=== PATIENT | female | born 1950 | race Caucasian/White ===

== ENCOUNTER 2017-02-08 06:12 | Outpatient (CLI) | payer MEDICARE ==
[~2017-02-08] VITALS: Ht 157.5 cm; Wt 64.9 kg
[2017-02-08] MEDS ORDERED: ESOM20TA PO (16:26)
[2017-02-08] MEDS ORDERED: ALEN70TA47 PO (16:26)
[2017-02-08] MEDS ORDERED: CITA20TA12 PO (16:26)
== END 2017-02-08 16:30 ==
LOC: PREOP 06:12
PROVIDERS: ATTEND Surgery
DX: Z01.818 Encounter for other preprocedural examination (principal); K21.9 Gastro-esophageal reflux disease without esophagitis

== ENCOUNTER 2017-02-12 10:58 | Day surgery (SDC) | payer MEDICARE, OTHER ==
[~2017-02-12] VITALS: Ht 157.5 cm; Wt 64.9 kg
[~2017-02-12 10:58] MED LIST: ALEN70TA47 PO; CITA20TA12 PO; ESOM20TA PO
[2017-02-12] MEDS ORDERED: NS IV 500 ML 500 ML ONE (11:07)
[2017-02-12 11:11] VITALS: BP 142/74
[2017-02-12] MEDS ORDERED: NS IV 500 ML 500 ML IV ONE (11:15)
--- NOTE | 2017-02-12 11:37 | Conscious Sedation/ASA ---
Conscious Sedation Pre-Proced Time Reviewed: 11:30 ASA Class: 2 Airway Mallampati Classification: ([place] appropriate class) I. II. III, IV Lungs Heart ASA score ASA 1: a normal healthy patient ASA 2: a patient with a mild systemic disease (mid diabetes, controlled hypertension, obesity ASA 3: a patient with a severe systemic disease that limits activity (angina , COPD, prior Myocardial infarction) ASA 4: a patient with an incapacitating disease that is a constant threat to life (CHF, renal failure) ASA 5: a moribund patient not expected to survive 24 hrs. (ruptured aneurysm) ASA 6: a declared brain patient whose organs are being harvested. For emergent operations, add the letter E after the classification Grade 2 Sedation Plan: Analgesia, Amnesia, Plan communicated to team members, Discussed options with patient/fam, Discussed risks with patient/fam Note The patient is an appropriate candidate to undergo the planned procedure, sedation, and anesthesia. The patient immediately re-assessed prior to indication. GEORGE ARCE MD Feb 12, 2017 11:37 am
--- NOTE | 2017-02-12 11:38 | Progress Note-Pre Operative ---
Pre-Operative Progress Note H&P Reviewed The H&P was reviewed, patient examined and no changes noted. Date Seen by Provider: Feb 12, 2017 Time Seen by Provider: 11:20 Date H&P Reviewed: Feb 12, 2017 Time H&P Reviewed: 11:30 Pre-Operative Diagnosis: GEORGE AMEZCUA MD Feb 12, 2017 11:38 am
[2017-02-12] MEDS ORDERED: ONDANSETRON 4 MG/2 ML (SDV) Z0FRAN IV PRN (11:45)
[2017-02-12] MEDS ORDERED: ACETAMINOPHEN 325 MG TABLET/CAPLET (TYLENOL) PO PRN (11:45)
[2017-02-12] MEDS ORDERED: HYDROcodone/APAP 5 MG/325 MG (LORTAB) TAB PO PRN (11:45)
[2017-02-12] MEDS ORDERED: morphine INJ 10 MG/ML 1ML (SYR OR VIAL) IV PRN (11:45)
[2017-02-12] MEDS ORDERED: fentaNYL INJECTION 100 MCG/2 ML AMP ONE ×2 (12:26)
[2017-02-12] MEDS ORDERED: MIDAZOLAM 2 MG/2 ML (VERSED) VIAL ONE ×5 (12:26→12:27)
[2017-02-12] MEDS ORDERED: LIDOCAINE JELLY 2% (XYLOCAINE) 5 ML TUBE ONE (12:27)
[2017-02-12] MEDS ORDERED: HURRICAINE EXT TUBE (BENZOCAINE) ONE (12:46)
[2017-02-12] MEDS: fentaNYL INJECTION 100 MCG/2 ML AMP IVP PRN ×2 (12:48→12:51)
[2017-02-12] MEDS: MIDAZOLAM 2 MG/2 ML (VERSED) VIAL IVP PRN ×3 (12:49→12:55)
[2017-02-12 13:30] VITALS: BP 121/72
[2017-02-12] MEDS ORDERED: LIDOCAINE JELLY 2% (XYLOCAINE) 5 ML TUBE TOP ONE (13:30)
[2017-02-12] MEDS ORDERED: HURRICAINE EXT TUBE (BENZOCAINE) XX PRN (13:30)
--- NOTE | 2017-02-12 13:34 | Progress Note-Post Operative ---
Post-Operative Progess Note Surgeon (s)/Electronic Publications Specialist (s) Surgeon GEORGE ARCE MD Electronic Publications Specialist: none Pre-Operative Diagnosis GERD Post-Operative Diagnosis reflux eosphagitis(class B), moderate HH(3cm), mild-mod gastritis. Procedure & Operative Findings Date of Procedure 02/12/17 Procedure Performed/Findings EGD with bx. Anesthesia Type CS Estimated Blood Loss Estimated blood loss (mL): minimal Specimens/Packing Specimens Removed GE jxn, antrum GEORGE ARCE MD Feb 12, 2017 1:34 pm
[2017-02-12] MEDS ORDERED: PANT40TA2 PO (13:36)
--- NOTE | 2017-02-12 13:37 | Discharge Inst-Surgical ---
D/C Lap Instructions-KIDO New, Converted, or Re-Newed RX: RX on Chart Follow Up PRN Activity as tolerated High Fiber Diet 25g or more per day Avoid Alcohol, Caffeine, Spicy [place] and Acid foods. Drink 64 fluid oz or more of fluids per day. Symptoms to Report: Fever over 101 degree F, Nausea/Vomiting If any problems/questions: Contact your physician or go to Emergency Room GEORGE ARCE MD Feb 12, 2017 1:37 pm
[2017-02-12 14:00] VITALS: BP 137/86
--- NOTE | 2017-02-15 02:30 | OPERATIVE REPORT ---
PROCEDURE PHYSICIAN: GEORGE CORCORAN DATE OF PROCEDURE: 02/12/2017 ATTENDING PRIMARY PHYSICIAN: Dr. Leonel Unger PREOPERATIVE DIAGNOSIS: Gastroesophageal reflux disease despite medical therapy. POSTOPERATIVE DIAGNOSES: 1. Reflux esophagitis, class B. 2. Moderate sized hiatal hernia, approximately 3 cm in size. 3. Mild to moderate gastritis. PROCEDURE: EGD with biopsy. SURGEON: Dr. Corcoran. ANESTHESIA: Conscious sedation. ESTIMATED BLOOD LOSS: Minimal. FINDINGS: 1. Reflux esophagitis, class B. 2. Moderate sized hiatal hernia, approximately 3 cm in size. 3. Mild to moderate gastritis with no ulcers, polyps or any neoplasms identified. The pylorus and duodenum appeared normal. DISPOSITION: The patient tolerated the procedure well. Ms. Jim Onofre is a 66-year-old female referred over to us for worsening gastroesophageal reflux disease. She reports that she has had reflux for greater than 10 years and has been taking Nexium which initially was effective. She reports that over time, the medication has become less affective and she has had recurrence as well as worsening reflux type symptoms of epigastric burning sensation as well as crampy pain, especially after spicy, greasy, or acidic foods. She also reports that she will have some nocturnal regurgitation as well on an intermittent basis. She does not report any hematemesis nor any coffee-ground emesis. The patient was brought to the endoscopy suite, laid in the left lateral decubitus position. After adequate IV pain and sedative medications and conscious sedation anesthesia, the mouthpiece was applied. The endoscope was then placed into the mouth visualizing the pharynx and hypopharyngeal region. Vocal cords, epiglottis and vallecula identified and appeared to be normal. The endoscope was then gently intubated into the esophageal opening and the esophagus insufflated. The endoscope was then advanced through the first, second, and 3rd portions esophagus. At the level of the GE junction, a reflux esophagitis, class B identified. There were no ulcers or strictures identified. The gastroesophageal junction was also intrathoracic consistent with a hiatal hernia. A biopsy was taken of the GE junction with forceps with visualization of good hemostasis. The endoscope was then easily advanced into the stomach and endoscope retroflexed visualizing a moderate sized hiatal hernia, approximately 3 cm in size. This appeared to be a type I sliding hiatal hernia. A mild to moderate gastritis was also noted. There were no formal ulcers, polyps or any neoplasms identified. A biopsy was taken of the stomach antrum with forceps with visualization of good hemostasis. The endoscope was then advanced through the pylorus and into the first and second portions of duodenum which appeared normal with no distal obstructions. The endoscope was then slowly withdrawn while taking a second look and suctioning of residual air with no additional findings. The patient tolerated the procedure well. We will have her continue with medical management with the necessary lifestyle and diet accommodation including smaller, more frequent meals, avoidance of eating at night, as well as head elevation while lying supine. She also needs to avoid caffeinated beverages, spicy, greasy and acidic foods. Her Nexium also appears have to become less affective and we will proceed with a trial of Protonix 40 mg daily. If she continues to have significant symptoms despite maximal medical therapy or degenerative changes of the gastroesophageal junction including Cintron's esophagus, she may be a candidate for antireflux procedure including Marlee fundoplication; however, before this, we would proceed with an esophageal manometry study. Job ID: [id number] Dictated Date: 02/12/2017 13:35:58 Pediatric Licensed Practical Nurse Date: 02/15/2017 02:19:30 / ayo
== END 2017-02-12 14:00 | disposition home or self-care (01) ==
LOC: ENDO 10:58
PROVIDERS: ATTEND Surgery
DX: K21.0 Gastro-esophageal reflux disease with esophagitis (principal); K44.9 Diaphragmatic hernia without obstruction or gangrene; K29.70 Gastritis, unspecified, without bleeding; F41.9 Anxiety disorder, unspecified; E83.51 Hypocalcemia; Z80.0 Family history of malignant neoplasm of digestive organs; Z87.891 Personal history of nicotine dependence; Z79.899 Other long term (current) drug therapy

== ENCOUNTER → 2020-04-19 | Outpatient (CLI) | payer MEDICARE, OTHER ==
[~2020-04-19] MED LIST changes: -ALEN70TA47 PO; +ALEN70TA5 PO; +PANT40TA2 PO
--- NOTE | 2020-04-19 16:08 | Diagnostic Imaging Report ---
PROCEDURE: US Thyroid. TECHNIQUE: Multiple real-time grayscale images were obtained of the thyroid in various projections. INDICATION: Thyroid nodule. COMPARISON: None available. FINDINGS: Right thyroid lobe: The right thyroid lobe measures 3.9 x 1.6 x 1.3 cm. No right-sided thyroid nodules. Isthmus: The thyroid isthmus measures 0.2 cm. Left thyroid lobe: The left thyroid lobe measures 4.5 x 1.5 x 2.0 cm. There are two nodules within the left thyroid lobe that are as follows: 1. In the mid left thyroid lobe, there is a mixed solid and cystic nodule with poorly defined margins that measures 1.4 x 1.5 x 3.0 cm and is taller than wide. No associated echogenic foci. (TI-RADS 4, moderately suspicious). 2. In the lower pole of the left thyroid, there is a solid hypoechoic well-circumscribed nodule measuring 1.4 x 0.8 x 1.3 cm and this is wider than tall. No echogenic foci are present. (TI-RADS 4, moderately suspicious). IMPRESSION: 1. Left-sided thyroid nodules are moderately suspicious and the larger mixed solid and cystic nodule should undergo fine-needle aspiration given size. 2. The smaller solid nodule should have at a minimum of follow-up thyroid ultrasound in 12 months. Alternatively, FNA could also be performed of this nodule at the time of the larger nodule. Dictated by: Dictated on workstation # [id number]
== END ==
LOC: RAD 15:45
PROVIDERS: ATTEND Internal Medicine Endocrinology, Diabetes & Metabolism
DX: E04.2 Nontoxic multinodular goiter (principal)
CPT/HCPCS: 76536

== ENCOUNTER 2022-10-19 12:09 | Observation (INO) | payer MEDICARE, OTHER ==
[~2022-10-19] VITALS: Ht 157.2 cm; Wt 63.4 kg
[2022-10-19] VITALS (11 sets, daily range): BP systolic 119–150; BP diastolic 64–89
[~2022-10-19 12:09] MED LIST changes: -ALEN70TA5 PO; +ALEN70TA80 PO
[2022-10-19] MEDS ORDERED: D5 NS 1000 ML IV SOLUTION 1,000 ML IV SCH (13:15)
[2022-10-19 13:42] LABS: BASOPHILS # (AUTO) 0.1 10^3/uL (0.0-0.1); BASOPHILS % (AUTO) 1 % (0-10); EOSINOPHILS # (AUTO) 0.3 10^3/uL (0.0-0.3); EOSINOPHILS % (AUTO) 3 % (0-10); HEMATOCRIT 33 % (35-52); HEMOGLOBIN 10.4 g/dL (11.5-16.0); LYMPHOCYTES # (AUTO) 1.7 10^3/uL (1.0-4.0); LYMPHOCYTES % (AUTO) 21 % (12-44); MEAN CORPUSCULAR HEMOGLOBIN 28 pg (25-34); MEAN CORPUSCULAR HGB CONC 32 g/dL (32-36); MEAN CORPUSCULAR VOLUME 88 fL (80-99); MEAN PLATELET VOLUME 10.5 fL (9.0-12.2); MONOCYTES # (AUTO) 0.7 10^3/uL (0.0-1.0); MONOCYTES % (AUTO) 9 % (0-12); NEUTROPHILS # (AUTO) 5.2 10^3/uL (1.8-7.8); NEUTROPHILS % (AUTO) 66 % (42-75); PLATELET COUNT 306 10^3/uL (130-400); WHITE BLOOD COUNT 7.9 10^3/uL (4.3-11.0)
[2022-10-19 13:53] LABS: POTASSIUM 3.8 MMOL/L (3.6-5.0)
[2022-10-19 13:54] LABS: CALCIUM 8.9 MG/DL (8.5-10.1)
[2022-10-19 13:58] LABS: CREATININE SERUM 0.86 MG/DL (0.60-1.30)
[2022-10-19] MEDS ORDERED: VANCOMYCIN 1250 MG/NS 250 ML PREMIX IV NR (14:00)
[2022-10-19] MEDS ORDERED: LACTATED RINGERS 1,000 ML IV PRN (14:15)
[2022-10-19] MEDS ORDERED: POTA-177 PO (14:52)
[2022-10-19] MEDS ORDERED: ALPR0.5T7 PO (14:53)
[2022-10-19] MEDS ORDERED: HYDR-700 PO (14:53)
[2022-10-19] MEDS ORDERED: MAGN200T8 PO (14:54)
[2022-10-19] MEDS ORDERED: MELA1TAB72 PO (14:54)
[2022-10-19] MEDS ORDERED: IBUP-2473 PO (14:55)
[2022-10-19] MEDS ORDERED: PANT40TA52 PO (14:55)
[2022-10-19] MEDS ORDERED: proPOfol 200 MG/20 ML (DIPRIVAN) VIAL IV ONE (16:47)
[2022-10-19] MEDS ORDERED: LIDOCAINE PF 2% 5 ML (XYLOCAINE) VIAL ONE (16:47)
[2022-10-19] MEDS ORDERED: SEVOFLURANE (ULTANE) 15 ML INHAL SOLN ONE (16:47)
[2022-10-19] MEDS ORDERED: ONDANSETRON 4 MG/2 ML (SDV) Z0FRAN ONE (16:47)
[2022-10-19] MEDS ORDERED: MIDAZOLAM 2 MG/2 ML (VERSED) VIAL ONE (16:48)
[2022-10-19] MEDS ORDERED: fentaNYL INJ 100 MCG/2 ML AMP ONE (16:48)
[2022-10-19] MEDS ORDERED: LIDOCAINE/EPI 1%-1:100,000 (XYLOCAINE) 20ML ONE (16:52)
--- NOTE | 2022-10-19 16:55 | Progress Note-Post Operative ---
Post-Operative Progess Note Surgeon (s)/Terminal Carman (s) Surgeon ANNIE GILLETTE MD Terminal Carman n/a Pre-Operative Diagnosis Nasoseptal Abscess Post-Operative Diagnosis same Post-Op Procedure Note Date of Procedure: Oct 19, 2022 Name of Procedure Performed: I/D Nasoseptal Abscess Description & Findings Description and Findings: n/a Anesthesia Type lma Estimated Blood Loss minimal Packing none. Specimen(s) collected/removed none ANNIE GILLETTE MD Oct 19, 2022 16:55
--- NOTE | 2022-10-19 16:55 | Progress Note-Pre Operative ---
Pre-Operative Progress Note Date of Available H&P: Oct 19, 2022 Date H&P Reviewed: Oct 19, 2022 Time H&P Reviewed: 16:30 History & Physical: H&P Reviewed, Patient Examed, No changes noted Changes from last HP none Pre-Operative Diagnosis: Nasoseptal Abscess ANNIE GILLETTE MD Oct 19, 2022 16:55
[2022-10-19] MEDS ORDERED: LIDOCAINE/EPI 1%-1:100,000 (XYLOCAINE) 20ML INJ ONE (17:05)
[2022-10-19] MEDS ORDERED: SUCCINYLCHOLINE INJ 20 MG/1 ML 10 ML VIAL ONE (17:16)
[2022-10-19] MEDS ORDERED: MUPIROCIN 2% OINT 22 GM (BACTROBAN) TUBE ONE (17:17)
[2022-10-19] MEDS ORDERED: MUPIROCIN 2% OINT 22 GM (BACTROBAN) TUBE TOP ONE (17:27)
[2022-10-19] MEDS ORDERED: fentaNYL INJ 100 MCG/2 ML AMP IVP ONE (17:45)
[2022-10-19] MEDS ORDERED: MEPERIDINE (DEMEROL) INJ 50 MG/ML IVP ONE (17:45)
[2022-10-19] MEDS ORDERED: ONDANSETRON 4 MG/2 ML (SDV) Z0FRAN IVP PRN (17:45)
[2022-10-19] MEDS ORDERED: PROMETHAZINE INJ 25 MG/ML (PHENERGAN) AMP IVP ONE (17:45)
[2022-10-19] MEDS ORDERED: morphine INJ 10 MG/ML 1ML (SYR OR VIAL) IVP ONE (17:45)
[2022-10-20] MEDS ORDERED: VANCOMYCIN 1 GM/NS 250 ML IVPB IV SCH ×2 (09:00)
--- NOTE | 2022-10-20 09:19 | Anesthesia-General Post-Op ---
General Patient Condition Mental Status/LOC: Same as Preop Cardiovascular: Satisfactory Nausea/Vomiting: Absent Respiratory: Satisfactory Pain: Controlled Complications: Absent Post Op Complications Complications None Follow Up Care/Instructions Patient Instructions None needed. Anesthesia/Patient Condition Patient Condition Patient is doing well, no complaints, stable vital signs, no apparent adverse anesthesia problems. No complications reported per nursing. OLIVE PATIÑO CRNA Oct 20, 2022 09:19
== END 2022-10-19 20:20 | disposition home or self-care (01) ==
LOC: 4TH 12:45
PROVIDERS: ADMIT Otolaryngology Otolaryngology/Facial Plastic Surgery; ATTEND Otolaryngology Otolaryngology/Facial Plastic Surgery
DX: J34.89 Other specified disorders of nose and nasal sinuses (principal)
CPT/HCPCS: 36415; 80048; 85025; 87070; 87075; 87077; 87186; 87205; 96374